=== PATIENT | male | born 1945 | race Hispanic/Latino ===

== ENCOUNTER → 2019-11-05 | Day surgery (SDC) | payer MEDICARE, OTHER ==
[2019-10-31 11:33] LABS: BASOPHILS # (AUTO) 0.1 (0.0-0.1); EOSINOPHILS # (AUTO) 0.4 (0.0-0.4); EOSINOPHILS % 6.7 % (0.0-6.0); HEMATOCRIT 40.5 % (38.2-49.6); LYMPHOCYTES # (AUTO) 1.9 (1.0-3.2); LYMPHOCYTES % 30.8 % (18.0-39.1); MEAN CORPUSCULAR HEMOGLOBIN 28.5 pg (28-32); MEAN CORPUSCULAR HGB CONC 32.1 g/dL (31-35); MEAN CORPUSCULAR VOLUME 88.8 fL (81-99); MONOCYTES # (AUTO) 0.6 (0.2-0.8); MONOCYTES % 9.3 % (4.4-11.3); NEUTROPHILS # (AUTO) 3.1 (2.1-6.9); PLATELET COUNT 243 x10e3/uL (140-360); RED BLOOD COUNT 4.56 x10e6/uL (4.3-5.7); RED CELL DISTRIBUTION WIDTH 13.5 % (11.7-14.4)
[2019-10-31 11:54] LABS: ALBUMIN 3.4 g/dL (3.5-5.0); ALBUMIN/GLOBULIN RATIO 0.8 (0.8-2.0); ANION GAP 14.2 mmol/L (8-16); CALCIUM 9.3 mg/dL (8.4-10.2); CREATININE, SERUM 1.36 mg/dL (0.72-1.25); POTASSIUM 4.2 mmol/L (3.5-5.1)
[~2019-11-05] VITALS: Ht 167.6 cm; Wt 79.4 kg
[2019-11-05] VITALS (8 sets, daily range): BP systolic 114–142; BP diastolic 63–88
[~2019-11-05] MED LIST: ALPRAZOLAM 0.5 MG TAB ONE; ASPIRIN 325 MG TAB ONE; BIVALRIUDIN 250 MG/VIAL VIAL IV ONE; DIPHENHYDRAMINE HCL 25 MG CAP ONE; EPTIFIBATIDE 10 ML ONE; FENTANYL CITRATE/PF 100MCG/2 ML INJ ONE; FUROSEMIDE40 MG PO; HEPARIN SOD/SOD CHLORIDE 2,000 ML ONE; IOPAMIDOL 370 MG/ML 200 ML INFUS..BTL INJ ONE; LANTUS 3ML100 UNITS/ SC; LIDOCAINE HCL 2% LOCAL 20 ML VIAL ONE; MESALAMINE1.2 GM PO; MIDAZOLAM HCL 2 MG/2 ML VIAL ONE; PRASUGREL 10 MG TAB ONE; SODIUM CHLORIDE 0.9% 1000ML 1,000 ML ONE; SODIUM CHLORIDE 0.9% 50ML 50 ML ONE; TORSEMIDE10 MG PO
--- NOTE | 2019-11-05 12:00 | NUR ---
Report received from TRAVIS RN. Review of orders, events, and current status. Angiomax complete. TR band to right wrist with gross hematoma partially resolved by manual pressure. + neurovascular function. VS wnl to baseline. LOC 2, drowsy, easily aroused then back to rest. Denies c/p or need. IV to left hand presents healthy with NS 2@ 100ml/hr. Bed low and locked, siderails up x2, and belongings under bed. No call light possible in ENDO 3, continuos nursing presence initiated.
--- NOTE | 2019-11-05 12:20 | NUR ---
Hematoma mostly resolved after 20 minutes of manual pressure. Dr. Jeong aware. to bedside. leaving till pt discharge. RX prescription given to for filling. Verbalizes understanding need for medications and to continue in AM.
--- NOTE | 2019-11-05 12:35 | NUR ---
observed increased swelling to right wrist. manual pressure resumed. TR Band unchanged + neurovascular function. No active bleeding can be seen under TR band or around TR. skin puncture appears to be positioned under TR correctly. + pleth.
--- NOTE | 2019-11-05 13:00 | NUR ---
right radial TR band remains intact , + neurovascular function present. hematoma with moderate resolution. coban pressure dressing applied proximal to TR band, + pleth. waveform
--- NOTE | 2019-11-05 13:08 | Operative Report ---
DATE OF PROCEDURE: 11/05/2019 SURGEON: Hossein Jeong MD INDICATIONS: Coronary artery disease, angina with abnormal stress test. PROCEDURES PERFORMED: 1. Conscious sedation administration, hemodynamic, neurological monitoring and recovery by laboratory chief RN, supervision by , 65 minutes. 2. Ultrasound-guided access in the right radial artery with sheath placement and image storage. 3. Left heart catheterization, selective coronary angiography. 4. PTCA and stent placement of the right coronary artery. 5. Deployment of right wrist TR band. COMPLICATIONS: None. BLOOD LOSS: Minimal. RECOMMENDATIONS: Aggressive medical therapy, two-staged intervention on the left circumflex and left anterior descending coronary arteries. DESCRIPTION OF PROCEDURE: Access was obtained in the right radial artery using ultrasound guidance. A 6-Italian sheath was placed. The patient received intravenous Angiomax, intracoronary Integrilin as well as oral prasugrel and aspirin for anticoagulation. Left main, mild disease. Left anterior descending artery, proximal 80% stenosis. Remaining vessel had diffuse 50% to 70% stenosis. Circumflex proximal/ostial 50% to 60% stenosis. Mid and distal circumflex, 80% stenosis. Right coronary artery long tubular 80% stenosis in its mid proximal and distal portions. LV end-diastolic pressure was 12. No gradient across the aortic valve on pullback. A decision was made to intervene on the right coronary artery following discussion with the patient's , who was an RN. Right coronary artery was cannulated using a 6-Italian JR4 guiding catheter. Short Runthrough wire was advanced for support. Three overlapping stents two 3.0 x 38, deployed at 12 atmospheres, 3.0 x 20 deployed at 18 atmospheres and subsequently 3.5 x 12 mm Synergy stents in overlapping fashion extending from the proximal to the distal right coronary artery. Excellent end result, less than 10% residual stenosis, TIMI3 flow. No complications. Wire and guide sheath removed. TR band applied. The patient observed in the hospital 6 hours and subsequently discharged home the same day. MD TREVON Hurtado/DANIAL /[id number]
== END | disposition home or self-care (01) ==
LOC: CATH LAB 08:56
PROVIDERS: ATTEND Internal Medicine Interventional Cardiology
DX: I25.118 Atherosclerotic heart disease of native coronary artery with other forms of angina pectoris (principal); R94.39 Abnormal result of other cardiovascular function study; E11.9 Type 2 diabetes mellitus without complications; I87.2 Venous insufficiency (chronic) (peripheral); Z01.812 Encounter for preprocedural laboratory examination; Z11.59 Encounter for screening for other viral diseases; Z79.4 Long term (current) use of insulin
CPT/HCPCS: 76937; 93458; C9600; 36415; 80053; 85025; 92928; 99152; 99153; C1769; C1874; C1887; J0583; J1327; J2001; J2250; J3010; J7030; Q9967; U0002

== ENCOUNTER 2020-04-22 15:56 | Inpatient (IN) | payer MEDICARE ==
[~2020-04-22] VITALS: Ht 167.6 cm; Wt 79.4 kg
[~2020-04-22 15:56] MED LIST changes: -ALPRAZOLAM 0.5 MG TAB ONE; -ASPIRIN 325 MG TAB ONE; -BIVALRIUDIN 250 MG/VIAL VIAL IV ONE; -DIPHENHYDRAMINE HCL 25 MG CAP ONE; -EPTIFIBATIDE 10 ML ONE; -FENTANYL CITRATE/PF 100MCG/2 ML INJ ONE; -HEPARIN SOD/SOD CHLORIDE 2,000 ML ONE; -IOPAMIDOL 370 MG/ML 200 ML INFUS..BTL INJ ONE; -LIDOCAINE HCL 2% LOCAL 20 ML VIAL ONE; -MIDAZOLAM HCL 2 MG/2 ML VIAL ONE; -PRASUGREL 10 MG TAB ONE; -SODIUM CHLORIDE 0.9% 1000ML 1,000 ML ONE; -SODIUM CHLORIDE 0.9% 50ML 50 ML ONE
[2020-04-22] MEDS ORDERED: PANTOPRAZOLE 40 MG 10ML VIAL IV STA (18:33)
[2020-04-22] MEDS ORDERED: INSULIN LISPRO 100 UNIT/1 ML 3ML VIAL SQ STA (18:33)
[2020-04-22] MEDS ORDERED: SODIUM CHLORIDE 0.9% 500ML 500 ML IV STA (18:35)
[2020-04-22] MEDS ORDERED: PANTOPRAZOLE 40 MG 10ML VIAL ONE (19:22)
[2020-04-22] MEDS ORDERED: SODIUM CHLORIDE 0.9% 500ML 500 ML ONE (19:22)
[2020-04-22] MEDS ORDERED: INSULIN REGULAR, HUMAN 100 UNIT/1 ML 3ML VIAL ONE (19:22)
[2020-04-22] MEDS ORDERED: INSULIN REGULAR, HUMAN 100 UNIT/1 ML 3ML VIAL SQ ONE (19:30)
[2020-04-22 20:50] VITALS: BP 136/70
[2020-04-22 21:45] VITALS: BP 136/70
[2020-04-22 22:14] VITALS: BP 122/66
[2020-04-22] MEDS: SODIUM CHLORIDE 0.9% 1000ML 1,000 ML IV SCH (23:14)
[2020-04-23] VITALS (9 sets, daily range): BP systolic 108–139; BP diastolic 66–80
[2020-04-23] MEDS ORDERED: ASPIRIN81 MG PO (03:22)
[2020-04-23] MEDS ORDERED: IBUPROFEN200 MG PO (03:22)
[2020-04-23] MEDS ORDERED: CLOPIDOGREL75 MG PO (03:22)
[2020-04-23] MEDS ORDERED: ATORVASTATIN CA20 MG PO (03:22)
[2020-04-23 05:19] LABS: BASOPHILS # (AUTO) 0.1 (0.0-0.1); BASOPHILS % 0.8 % (0.0-1.0); EOSINOPHILS # (AUTO) 0.3 (0.0-0.4); EOSINOPHILS % 3.6 % (0.0-6.0); LYMPHOCYTES # (AUTO) 1.6 (1.0-3.2); LYMPHOCYTES % 21.9 % (18.0-39.1); MEAN CORPUSCULAR HEMOGLOBIN 30.8 pg (28-32); MEAN CORPUSCULAR VOLUME 93.4 fL (81-99); MONOCYTES # (AUTO) 0.7 (0.2-0.8); MONOCYTES % 9.1 % (4.4-11.3); NEUTROPHILS # (AUTO) 4.8 (2.1-6.9); NEUTROPHILS % 64.1 % (38.7-80.0); PLATELET COUNT 222 x10e3/uL (140-360); RED BLOOD COUNT 2.11 x10e6/uL (4.3-5.7); RED CELL DISTRIBUTION WIDTH 13.5 % (11.7-14.4)
[2020-04-23 05:28] LABS: HEMATOCRIT 19.7 % (38.2-49.6); HEMOGLOBIN 6.5 g/dL (14.0-18.0)
[2020-04-23 05:45] LABS: BLOOD UREA NITROGEN 60 mg/dL (7-26); BUN/CREATININE RATIO 54 (6-25); CALCIUM 7.7 mg/dL (8.4-10.2); CARBON DIOXIDE 19 mmol/L (22-29); CHLORIDE 112 mmol/L (98-107); CREATININE, SERUM 1.12 mg/dL (0.72-1.25); EST GLOMERULAR FILTRATION RATE > 60 ML/MIN (60-); GLUCOSE 183 mg/dL (74-118); SODIUM 139 mmol/L (136-145)
[2020-04-23] MEDS: FUROSEMIDE 40 MG TAB PO SCH (09:00)
[2020-04-23] MEDS ORDERED: SODIUM CHLORIDE 0.9% 250ML 250 ML IV ONE (09:00)
[2020-04-23] MEDS: ATORVASTATIN 20 MG TAB PO SCH (10:03)
[2020-04-23] MEDS: PANTOPRAZOLE 40 MG 10ML VIAL IV SCH ×2 (10:03→11:54)
[2020-04-23] MEDS: SODIUM CHLORIDE 0.9% 1000ML 1,000 ML IV SCH ×2 (11:54→21:40)
[2020-04-23] MEDS ORDERED: SODIUM CHLORIDE 0.9% 250ML 250 ML ONE (16:41)
[2020-04-23] MEDS ORDERED: ZOLPIDEM TARTRATE 5 MG TAB PO PRN (20:00)
[2020-04-24] VITALS (7 sets, daily range): BP systolic 134–156; BP diastolic 78–84
[2020-04-24 05:20] LABS: BASOPHILS # (AUTO) 0.1 (0.0-0.1); BASOPHILS % 1.2 % (0.0-1.0); EOSINOPHILS # (AUTO) 0.5 (0.0-0.4); EOSINOPHILS % 8.2 % (0.0-6.0); HEMATOCRIT 25.2 % (38.2-49.6); HEMOGLOBIN 8.4 g/dL (14.0-18.0); LYMPHOCYTES # (AUTO) 1.7 (1.0-3.2); LYMPHOCYTES % 27.3 % (18.0-39.1); MEAN CORPUSCULAR HEMOGLOBIN 30.3 pg (28-32); MEAN CORPUSCULAR HGB CONC 33.3 g/dL (31-35); MONOCYTES # (AUTO) 0.7 (0.2-0.8); MONOCYTES % 10.7 % (4.4-11.3); NEUTROPHILS # (AUTO) 3.2 (2.1-6.9); NEUTROPHILS % 52.4 % (38.7-80.0); PLATELET COUNT 176 x10e3/uL (140-360); RED BLOOD COUNT 2.77 x10e6/uL (4.3-5.7); RED CELL DISTRIBUTION WIDTH 14.6 % (11.7-14.4)
[2020-04-24 05:50] LABS: ALANINE AMINOTRANSFERASE 18 IU/L (0-55); ALBUMIN 2.7 g/dL (3.5-5.0); ALKALINE PHOSPHATASE 118 IU/L (40-150); ANION GAP 11.1 mmol/L (8-16); BUN/CREATININE RATIO 32 (6-25); CALCIUM 7.8 mg/dL (8.4-10.2); CARBON DIOXIDE 20 mmol/L (22-29); CHLORIDE 117 mmol/L (98-107); CREATININE, SERUM 0.92 mg/dL (0.72-1.25); EST GLOMERULAR FILTRATION RATE > 60 ML/MIN (60-); GLUCOSE 239 mg/dL (74-118); MAGNESIUM 1.7 MG/DL (1.3-2.1); POTASSIUM 4.1 mmol/L (3.5-5.1); SODIUM 144 mmol/L (136-145)
[2020-04-24 05:56] LABS: BLOOD UREA NITROGEN 29 mg/dL (7-26)
[2020-04-24] MEDS ORDERED: DEXTROSE 50% SYRINGE 50 ML IV PRN (06:15)
[2020-04-24] MEDS: FUROSEMIDE 40 MG TAB PO SCH (09:04)
[2020-04-24] MEDS: ATORVASTATIN 20 MG TAB PO SCH (09:04)
[2020-04-24] MEDS: SODIUM CHLORIDE 0.9% 1000ML 1,000 ML IV SCH (09:07)
[2020-04-24] MEDS: INSULIN REGULAR, HUMAN 100 UNIT/1 ML 3ML VIAL SQ SCH ×4 (09:10→20:36)
[2020-04-24] MEDS ORDERED: PROPOFOL IV EMULSION 10 MG/ML 20 ML VIAL ONE (12:30)
[2020-04-25] VITALS: BP 147/78
[2020-04-25] MEDS: SODIUM CHLORIDE 0.9% 1000ML 1,000 ML IV SCH ×2 (00:20→02:13)
[2020-04-25 04:00] VITALS: BP 143/75
[2020-04-25 05:34] LABS: BASOPHILS # (AUTO) 0.1 (0.0-0.1); BASOPHILS % 1.5 % (0.0-1.0); EOSINOPHILS # (AUTO) 0.5 (0.0-0.4); EOSINOPHILS % 7.7 % (0.0-6.0); HEMATOCRIT 25.7 % (38.2-49.6); HEMOGLOBIN 8.6 g/dL (14.0-18.0); LYMPHOCYTES # (AUTO) 1.2 (1.0-3.2); LYMPHOCYTES % 19.3 % (18.0-39.1); MEAN CORPUSCULAR HEMOGLOBIN 30.3 pg (28-32); MEAN CORPUSCULAR HGB CONC 33.5 g/dL (31-35); MEAN CORPUSCULAR VOLUME 90.5 fL (81-99); MONOCYTES # (AUTO) 0.6 (0.2-0.8); MONOCYTES % 10.3 % (4.4-11.3); NEUTROPHILS # (AUTO) 3.6 (2.1-6.9); NEUTROPHILS % 60.7 % (38.7-80.0); PLATELET COUNT 179 x10e3/uL (140-360); RED BLOOD COUNT 2.84 x10e6/uL (4.3-5.7); RED CELL DISTRIBUTION WIDTH 14.4 % (11.7-14.4)
[2020-04-25] MEDS: INSULIN REGULAR, HUMAN 100 UNIT/1 ML 3ML VIAL SQ SCH (07:30)
[2020-04-25 08:13] VITALS: BP 150/78
[2020-04-25] MEDS ORDERED: PANTOPRAZOLE SO40 MG PO (08:32)
[2020-04-25] MEDS: ATORVASTATIN 20 MG TAB PO SCH (09:00)
[2020-04-25] MEDS: FUROSEMIDE 40 MG TAB PO SCH (09:00)
[2020-04-25] MEDS: PANTOPRAZOLE 40 MG 10ML VIAL IV SCH (09:00)
== END 2020-04-25 09:44 | disposition home or self-care (01) | DRG 377 ==
LOC: FSED 16:25 → ERHOLD 18:54 → MED/SURG2 20:40
PROVIDERS: ADMIT Internal Medicine; ATTEND Internal Medicine
PROC: 30233N1 Transfusion of Nonautologous Red Blood Cells into Peripheral Vein, Percutaneous Approach (ICD-10-PCS; 2020-04-23)
PROC: 0DB78ZX Excision of Stomach, Pylorus, Via Natural or Artificial Opening Endoscopic, Diagnostic (ICD-10-PCS; principal; 2020-04-24 14:00)
DX: K25.0 Acute gastric ulcer with hemorrhage (principal); J96.01 Acute respiratory failure with hypoxia; I25.10 Atherosclerotic heart disease of native coronary artery without angina pectoris; I10 Essential (primary) hypertension; E11.9 Type 2 diabetes mellitus without complications; E78.5 Hyperlipidemia, unspecified; Z79.1 Long term (current) use of non-steroidal anti-inflammatories (NSAID); K44.9 Diaphragmatic hernia without obstruction or gangrene; K29.70 Gastritis, unspecified, without bleeding; D64.9 Anemia, unspecified; Z20.822 Contact with and (suspected) exposure to COVID-19
CPT/HCPCS: 36415; 43239; 71045; 80048; 80053; 82948; 83735; 83880; 85025; 86850; 86900; 86920; 88305; 88312; 93306; 96374; 96376; 99284; J1817; J7030; J7040; J7050; P9016; U0002